=== PATIENT | female | born 1935 | race Caucasian/White ===

== ENCOUNTER 2016-12-29 12:47 | Emergency (ER) | payer OTHER ==
[~2016-12-29] VITALS: Ht 157.5 cm; Wt 70.6 kg
[2016-12-29 13:38] LABS: EOSINOPHIL (%) 1.4 % (0-5); EOSINOPHIL COUNT 0.1 K/uL (0-0.3); HEMATOCRIT 41.5 % (36.0-46.0); IMMATURE GRANULOCYTE (%) 0.4 % (0.0-0.7); INSTRUMENT ABS NEUTROPHIL CT 3.2 K/uL; LYMPHOCYTE COUNT 1.5 K/uL (1.0-2.8); MCH 32.5 PG (29.0-34.0); MCV 101.5 FL (83-99); MEAN PLAT.VOLUME 11.6 uM^3 (9.5-12.4); MONOCYTE (%) 7.2 % (3-12); MONOCYTE COUNT 0.4 K/uL (0-0.8); NEUTROPHIL (%) 61.4 % (45-76); NEUTROPHIL COUNT 3.2 K/uL (1.8-6.4); PLATELET COUNT 106 K/uL (156-360); RBC DIS.WIDTH-SD 52.6 % (39-53); RED BLOOD COUNT 4.09 M/uL (3.80-5.20); WHITE BLOOD COUNT 5.2 K/uL (4.1-10.2)
[2016-12-29 13:46] LABS: INTER. NORMALIZED RATIO 1.1; PROTHROMBIN TIME 12.3 SEC (10.2-12.9)
[2016-12-29 13:47] LABS: CHLORIDE 113 mEq/L (99-109); POTASSIUM 4.9 mEq/L (3.7-5.4); SODIUM 143 mEq/L (136-147)
[2016-12-29 13:49] LABS: GLUCOSE 100 mg/dL (70-99); PTT 35.5 SEC (25-37)
[2016-12-29 13:50] LABS: ANION GAP 10 MEQ/L (2-14)
[2016-12-29 13:51] LABS: TOTAL BILIRUBIN 0.4 mg/dL (0.0-1.0)
[2016-12-29 13:52] LABS: ALKALINE PHOSPHATASE 95 IU/L (3-129)
[2016-12-29 13:53] LABS: GFR ESTIMATE (CALCULATED) > 59 mL/min/
[2016-12-29 13:54] LABS: UREA NITROGEN (BUN) 25 mg/dL (9-23)
[2016-12-29] MEDS ORDERED: TRAMADOL HCL50 MG PO (14:41)
[2016-12-29 15:16] VITALS: BP 176/86
== END 2016-12-29 15:16 | disposition home or self-care (01) ==
LOC: EME 12:47
PROVIDERS: Emergency Medicine
DX: M25.551 Pain in right hip (principal); M25.552 Pain in left hip; R10.31 Right lower quadrant pain; R10.32 Left lower quadrant pain; M79.604 Pain in right leg; M79.605 Pain in left leg; M47.897 Other spondylosis, lumbosacral region; K57.30 Diverticulosis of large intestine without perforation or abscess without bleeding; F17.200 Nicotine dependence, unspecified, uncomplicated
CPT/HCPCS: 72131; 72192; 80053; 85025; 85610; 85730; 99281; 99284

== ENCOUNTER 2017-10-03 09:43 | Emergency (ER) | payer OTHER ==
[~2017-10-03] VITALS: Ht 154.9 cm; Wt 65.2 kg
[~2017-10-03 09:43] MED LIST: TRAMADOL HCL50 MG PO
[2017-10-03] MEDS ORDERED: MELOXICAM15 MG PO (10:09)
[2017-10-03] MEDS ORDERED: CYCLOBENZAPRINE10 MG PO (10:10)
[2017-10-03] MEDS ORDERED: SIMVASTATIN20 MG PO (10:11)
[2017-10-03] MEDS ORDERED: ALPRAZOLAM0.5 MG PO (10:11)
[2017-10-03] MEDS ORDERED: LISINOPRIL5 MG PO (10:12)
[2017-10-03] MEDS ORDERED: LEVOTHYROXINE88 MCG PO (10:12)
[2017-10-03 10:31] LABS: BASOPHIL (%) 0.2 % (0-1); EOSINOPHIL (%) 0.1 % (0-5); HEMATOCRIT 40.2 % (36.0-46.0); HEMOGLOBIN 13.5 G/DL (11.9-15.5); IMMATURE GRANULOCYTE (%) 0.5 % (0.0-0.7); LYMPHOCYTE (%) 19.4 % (15-42); LYMPHOCYTE COUNT 1.9 K/uL (1.0-2.8); MCH 32.8 PG (29.0-34.0); MCHC 33.6 G/DL (30.0-36.0); MCV 97.6 FL (83-99); MONOCYTE (%) 5.6 % (3-12); MONOCYTE COUNT 0.5 K/uL (0-0.8); NEUTROPHIL (%) 74.2 % (45-76); NEUTROPHIL COUNT 7.1 K/uL (1.8-6.4); PLATELET COUNT 139 K/uL (156-360); RBC DIS.WIDTH-CV 13.4 % (11.8-14.6); RBC DIS.WIDTH-SD 48.1 % (39-53); RED BLOOD COUNT 4.12 M/uL (3.80-5.20); WHITE BLOOD COUNT 9.6 K/uL (4.1-10.2)
[2017-10-03 10:43] LABS: CHLORIDE 115 mEq/L (99-109); SODIUM 141 mEq/L (136-147)
[2017-10-03 10:44] LABS: GLUCOSE 113 mg/dL (70-99)
[2017-10-03 10:48] LABS: CREATININE 0.9 mg/dL (0.6-1.3); GFR ESTIMATE (CALCULATED) > 59 mL/min/
[2017-10-03 10:49] LABS: UREA NITROGEN (BUN) 24 mg/dL (9-23)
[2017-10-03] MEDS ORDERED: ROXICODONE5 MG PO (13:23)
[2017-10-03 13:45] VITALS: BP 152/86
== END 2017-10-03 13:49 | disposition home or self-care (01) ==
LOC: EME 09:43
PROVIDERS: Emergency Medicine
DX: M25.551 Pain in right hip (principal); M16.0 Bilateral primary osteoarthritis of hip; I10 Essential (primary) hypertension; E78.5 Hyperlipidemia, unspecified; F17.200 Nicotine dependence, unspecified, uncomplicated; Z88.0 Allergy status to penicillin; Z88.2 Allergy status to sulfonamides
CPT/HCPCS: 73502; 80048; 85025; 93971; 99281; 99284